=== PATIENT | female | born 1990 | race Two or more races ===

== ENCOUNTER → 2016-10-01 | Outpatient (CLI) | payer OTHER | LOC: FIMAGING 13:33 | PROVIDERS: ATTEND Family Medicine | DX: Z30.431 Encounter for routine checking of intrauterine contraceptive device (principal); N93.8 Other specified abnormal uterine and vaginal bleeding ==

== ENCOUNTER → 2017-11-14 | Outpatient (CLI) | payer OTHER ==
[~2017-11-14] MED LIST: GADOBUTROL 10 ML VIAL IVP ONE; LIDOCAINE 1% 300 MG/30 ML SDV ONE
[2017-11-14 14:58] LABS: INR 0.97 (0.83-1.16); PROTIME(PATIENT) 13.1 SEC (12.0-15.0)
== END ==
LOC: FIMAGING 13:33
PROVIDERS: ATTEND Ophthalmology
PROC: B01B1ZZ Fluoroscopy of Spinal Cord using Low Osmolar Contrast (ICD-10-PCS; principal; 2017-11-14)
PROC: 009U3ZX Drainage of Spinal Canal, Percutaneous Approach, Diagnostic (ICD-10-PCS; principal; 2017-11-14)
DX: R51 Headache (principal); H47.10 Unspecified papilledema
CPT/HCPCS: A9585